=== PATIENT | male | born 1960 | race Caucasian/White ===

== ENCOUNTER 2022-01-23 02:49 | Emergency (ER) | payer OTHER, SELFPAY ==
[2022-01-23] VITALS (8 sets, daily range): BP systolic 106–126; BP diastolic 61–89; PULSE 118–126; RESP 22–28; TEMP 36.9; O2SAT 94–99; BMI 29.1
[2022-01-23] MEDS: OLANZapine 10 MG VIAL 5 MG IM (03:19)
[2022-01-23] MEDS: diphenhydrAMINE HCL 50 MG/ML VIAL 25 MG IM (03:19)
[2022-01-23] MEDS: LORazepam 2 MG/ML VIAL IM ×2 (03:20→03:50)
[2022-01-23] MEDS: Haloperidol Lactate 5 MG/ML VIAL IM (03:50)
[2022-01-23 04:25] LABS: COVID-19 Test Negative (Negative)
[2022-01-23 04:32] LABS: Amphetamine Screen Urine Not Detected (Not Detect); Barbiturates, Urine Not Detected (Not Detect); Benzodiazepines Screen Urine Not Detected (Not Detect); Cannabinoid Screen Urine POSITIVE (Not Detect); Cocaine Screen Urine POSITIVE (Not Detect); Fentanyl, urine Not Detected (Not Detect); Opiate Screen Urine Not Detected (Not Detect); Phencyclidine Screen Urine POSITIVE (Not Detect)
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
--- NOTE | 2022-01-23 06:27 | PC.NURSE ---
Patient minor abrasion on the knee and left for head from the restrain because of patient's extreme aggression and being combative during restraint process. No major injury observed or found. will continue to monitor.
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
== END 2022-01-23 09:59 | disposition home or self-care (01) ==
PROVIDERS: Emergency Provider Student in an Organized Health Care Education/Training Program; PCP Physician Assistant
DX: F43.10 Post-traumatic stress disorder, unspecified (principal); F19.90 Other psychoactive substance use, unspecified, uncomplicated; R45.6 Violent behavior; Z78.1 Physical restraint status; Z20.822 Contact with and (suspected) exposure to COVID-19
CPT/HCPCS: 80307; 87635; 96372; 99284; 99285; J1200; J2060